=== PATIENT | male | born 1965 | race Caucasian/White ===

== ENCOUNTER 2021-09-06 06:15 | Outpatient (CLI) | payer OTHER, SELFPAY ==
--- NOTE | 2021-09-06 06:45 | MRI_ITS ---
STUDY: MRI RIGHT KNEE REASON FOR EXAM: Male, 55 years old. Knee pain TECHNIQUE: Standardized fat and water weighted pulse sequences were obtained in all 3 orthogonal planes. COMPARISON: None. FINDINGS: Meniscectomy changes of the medial meniscus without remnant re-tear. There is diffuse, less than 50% thickness articular cartilage loss of the medial femorotibial compartment. Normal medial femoral condyle and tibial plateau. Normal medial collateral ligamentous complex (MCL). Normal distal semimembranosus, gracilis and semitendinosus tendons. Normal lateral meniscus. Normal hyaline cartilage of the lateral femorotibial compartment. Normal lateral femoral condyle and tibial plateau. Normal proximal tibiofibular articulation. Normal lateral collateral (fibular) ligament. Normal popliteus tendon. Normal biceps femoris tendon. Normal anterior cruciate ligament (ACL). Normal posterior cruciate ligament (PCL). Shallow trochlear groove with lateral subluxation of the patella and edema superolateral Hoffa''s fat pad consistent with patellofemoral maltracking. Normal hyaline cartilage of the patellofemoral compartment. Normal medial and lateral patellar retinaculum. Normal quadriceps tendon. Normal patellar tendon. Normal Hoffa''s fat pad. There is a moderate volume joint effusion. The soft tissues are unremarkable. The otherwise visualized osseous structures are unremarkable. MRI/Lower Ext Joint Only (Routine) IMPRESSION: 1. Meniscectomy change the medial meniscus without remnant re-tear with mild medial compartment chondromalacia and no subchondral edema. 2. Patellofemoral maltracking. 3. Moderate joint effusion. Electronically Signed: Kenroy Cohen MD at 10:51 EST Tel , Service support ,
== END 2021-09-06 23:59 | disposition short-term general hospital (02) ==
LOC: MRI 06:17
PROVIDERS: Referring Provider Chiropractor; Visit Provider Chiropractor
DX: S83.206A Unspecified tear of unspecified meniscus, current injury, right knee, initial encounter (principal)
CPT/HCPCS: 73721